=== PATIENT | female | born 1995 | race Caucasian/White ===

== ENCOUNTER 2017-12-07 01:05 | Day surgery (SDC) | payer OTHER ==
[2017-12-07] MEDS ORDERED: Ondansetron 4 MG/2 ML SDV IVPUSH ONE ×2 (01:44→04:56)
[2017-12-07] MEDS ORDERED: Sodium Chloride 0.9% 1,000 ML IV SCH (01:45)
[2017-12-07] MEDS ORDERED: HYDROmorphone 0.5 MG/0.5 ML SYRINGE IVPUSH STA (01:46)
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
[2017-12-07] MEDS ORDERED: Iopamidol 612 MG/ML 150 ML Bottle IVPUSH ONE (03:19)
[2017-12-07] MEDS ORDERED: Diatrizoate Meglumine/Diatrizoate Sodium 37% 120 ML Bottle PO ONE ×2 (03:19)
[2017-12-07] MEDS ORDERED: Ertapenem 1 GM in Sodium Chloride 0.9% 100 ML IV ONE (04:11)
[2017-12-07] MEDS ORDERED: HYDROmorphone 0.5 MG/0.5 ML SYRINGE IVPUSH ONE (04:37)
[2017-12-07] MEDS ORDERED: Lidocaine 1% 50 ML MDV ONE (07:05)
--- NOTE | 2017-12-07 07:10 | PCM.PREANE ---
Preanesthetic Assessment - Procedure Proposed Procedure: Lap APPY - Anesthesia/Transfusion/Family Hx Anesthesia History: Prior Anesthesia Without Reaction Family History of Anesthesia Reaction: No Transfusion History: No Prior Transfusion(s) - Review of Systems General: No Symptoms Pulmonary: Other (asthma- prn use of inhaler ) Cardiovascular: No Symptoms Gastrointestinal: No Symptoms Neurological: No Symptoms Other: Reports: Anxiety (not medicated ) - Physical Assessment NPO Status Date: 12/06/17 NPO Status Time: 14:00 O2 Sat by Pulse Oximetry: 100 Respiratory Rate: 18 Vital Signs: Last Vital Signs Temp 36.4 C 12/07/17 01:12 Pulse 68 12/07/17 01:12 Resp 18 12/07/17 01:12 BP 119/67 12/07/17 01:12 Pulse Ox 100 12/07/17 01:12 Height: 1.57 m Weight: 69.4 kg ASA Class: 2 Mental Status: Alert & Oriented x3 Airway Class: Mallampati = 1 Dentition: Reports: Normal Dentition Thyro-Mental Finger Breadths: 3 Mouth Opening Finger Breadths: 3 ROM/Head Extension: Full Lungs: Clear to Auscultation, Normal Respiratory Effort Cardiovascular: Regular Rate, Regular Rhythm - Lab Values: Laboratory Last Values WBC 11.43 K/mm3 (3.98-10.04) H 12/07/17 01:50 RBC 5.14 M/mm3 (3.98-5.22) 12/07/17 01:50 Hgb 14.6 gm/L (11.2-15.7) 12/07/17 01:50 Hct 43.3 % (34.1-44.9) 12/07/17 01:50 MCV 84.2 fl (79.4-94.8) 12/07/17 01:50 MCH 28.4 pg (25.6-32.2) 12/07/17 01:50 MCHC 33.7 g/dl (32.2-35.5) 12/07/17 01:50 RDW Std Deviation 41.7 fL (36.4-46.3) 12/07/17 01:50 Plt Count 219 K/mm3 (182-369) 12/07/17 01:50 MPV 10.7 fl (9.4-12.3) 12/07/17 01:50 Neutrophils % (Manual) 90 % (40-60) H 12/07/17 01:50 Band Neutrophils % 0 % (0-10) 12/07/17 01:50 Lymphocytes % (Manual) 4 % (20-40) L 12/07/17 01:50 Atypical Lymphs % 3 % 12/07/17 01:50 Monocytes % (Manual) 0 % (2-10) L 12/07/17 01:50 Eosinophils % (Manual) 2 % (0.7-5.8) 12/07/17 01:50 Basophils % (Manual) 1 (0.1-1.2) 12/07/17 01:50 Platelet Estimate Adequate 12/07/17 01:50 Plt Morphology Comment Normal 12/07/17 01:50 RBC Morph Comment Normal 12/07/17 01:50 Sodium 138 mEq/L (136-145) 12/07/17 01:50 Potassium 3.4 mEq/L (3.5-5.1) L 12/07/17 01:50 Chloride 104 mEq/L (98-107) 12/07/17 01:50 Carbon Dioxide 24 mEq/L (21-32) 12/07/17 01:50 Anion Gap 13.4 (5-15) 12/07/17 01:50 BUN 12 mg/dL (7-18) 12/07/17 01:50 Creatinine 1.1 mg/dL (0.55-1.02) H 12/07/17 01:50 Est Cr Clr Drug Dosing 64.52 mL/min 12/07/17 01:50 Estimated GFR (MDRD) > 60 mL/min (>60) 12/07/17 01:50 BUN/Creatinine Ratio 10.9 (14-18) L 12/07/17 01:50 Glucose 104 mg/dL (74-106) 12/07/17 01:50 Calcium 8.9 mg/dL (8.5-10.1) 12/07/17 01:50 Total Bilirubin 0.4 mg/dL (0.2-1.0) 12/07/17 01:50 AST 17 U/L (15-37) 12/07/17 01:50 ALT 27 U/L (14-59) 12/07/17 01:50 Alkaline Phosphatase 73 U/L (46-116) 12/07/17 01:50 Total Protein 8.1 g/dl (6.4-8.2) 12/07/17 01:50 Albumin 4.1 g/dl (3.4-5.0) 12/07/17 01:50 Globulin 4.0 gm/dL 12/07/17 01:50 Albumin/Globulin Ratio 1.0 (1-2) 12/07/17 01:50 Lipase 87 U/L (73-393) 12/07/17 01:50 Urine Color Yellow (Yellow) 12/07/17 02:04 Urine Appearance Clear (Clear) 12/07/17 02:04 Urine pH 5.5 (5.0-8.0) 12/07/17 02:04 Ur Specific [place] > or = 1.030 (1.005-1.030) 12/07/17 02:04 Urine Protein Negative (Negative) 12/07/17 02:04 Urine Glucose (UA) Negative (Negative) 12/07/17 02:04 Urine Ketones Negative (Negative) 12/07/17 02:04 Urine Occult Blood Negative (Negative) 12/07/17 02:04 Urine Nitrite Negative (Negative) 12/07/17 02:04 Urine Bilirubin Negative (Negative) 12/07/17 02:04 Urine Urobilinogen 0.2 (0.2-1.0) 12/07/17 02:04 Ur Leukocyte Esterase Negative (Negative) 12/07/17 02:04 Urine RBC 0-5 /hpf (0-5) 12/07/17 02:04 Urine WBC 0-5 /hpf (0-5) 12/07/17 02:04 Ur Epithelial Cells 0-5 /hpf (0-5) 12/07/17 02:04 Urine Bacteria Rare /hpf (FEW) 12/07/17 02:04 Urine Mucus Moderate /hpf (FEW) H 12/07/17 02:04 Urine HCG, Qual Negative (NEGATIVE) 12/07/17 02:04 - Allergies Allergies/Adverse Reactions: Allergies Allergy/AdvReac Type Severity Reaction Status Date / Time No Known Allergies Allergy Verified 12/07/17 01:14 - Blood Blood Available: No Product(s) Available: None - Anesthesia Plan Pre-Op Medication Ordered: None - Acknowledgements Anesthesia Type Planned: General Anesthesia Pt an Appropriate Candidate for the Planned Anesthesia: Yes Alternatives and Risks of Anesthesia Discussed w Pt/Guardian: Yes Pt/Guardian Understands and Agrees with Anesthesia Plan: Yes PreAnesthesia Questionnaire - Past Surgical History HEENT Surgical History: Reports: Oral Surgery ([place] teeth extraction) - SUBSTANCE USE Smoking Status *Q: Never Smoker Second Hand Smoke Exposure: No Recreational Drug Use History: Yes Recreational Drug Type: Reports: Marijuana/Hashish (last smoked September 2017) - HOME MEDS Home Medications: Home Meds . [No Known Home Meds] 12/07/17 [History] - CURRENT (IN HOUSE) MEDS Current Meds: Current Medications Sodium Chloride (Normal Saline) 1,000 mls @ 150 mls/hr IV ASDIRECTED NELY Last Admin: 12/07/17 01:55 Dose: 150 mls/hr Discontinued Medications Diatrizoate Meglum/Diatrizoate Sod (Gastrografin 37%) 120 ml PO ONETIME ONE Stop: 12/07/17 03:20 Last Admin: 12/07/17 03:21 Dose: 120 ml Diatrizoate Meglum/Diatrizoate Sod (Gastrografin 37%) 120 ml PO ONETIME ONE Stop: 12/07/17 03:20 Hydromorphone HCl (Dilaudid) 0.5 mg IVPUSH ONETIME STA Stop: 12/07/17 01:47 Last Admin: 12/07/17 01:58 Dose: 0.5 mg Hydromorphone HCl (Dilaudid) 0.5 mg IVPUSH ONETIME ONE Stop: 12/07/17 04:38 Last Admin: 12/07/17 04:42 Dose: 0.5 mg Ertapenem 1 gm/ Sodium (Chloride) 100 mls @ 200 mls/hr IV ONETIME ONE Stop: 12/07/17 04:40 Last Admin: 12/07/17 04:33 Dose: 200 mls/hr Iopamidol (Isovue-300 (61%)) 125 ml IVPUSH ONETIME ONE Stop: 12/07/17 03:20 Last Admin: 12/07/17 03:21 Dose: 150 ml Ondansetron HCl (Zofran) 4 mg IVPUSH ONETIME ONE Stop: 12/07/17 01:45 Last Admin: 12/07/17 01:55 Dose: 4 mg Ondansetron HCl (Zofran) 4 mg IVPUSH ONETIME ONE Stop: 12/07/17 04:57 Last Admin: 12/07/17 05:01 Dose: 4 mg
[2017-12-07] MEDS ORDERED: Propofol 200 MG/20 ML SDV ONE (07:18)
[2017-12-07] MEDS ORDERED: Ondansetron 4 MG/2 ML SDV ONE (07:18)
[2017-12-07] MEDS ORDERED: Succinylcholine/Normal Saline 100 MG/5 ML Syringe ONE (07:18)
[2017-12-07] MEDS ORDERED: Dexamethasone 4 MG/ML 5 ML MDV ONE (07:18)
[2017-12-07] MEDS ORDERED: Midazolam 1 MG/ML 2 ML SDV ONE (07:18)
[2017-12-07] MEDS ORDERED: fentaNYL 250 MCG/5 ML SDV ONE (07:18)
[2017-12-07] MEDS ORDERED: Rocuronium 50 MG/5 ML Vial ONE (07:18)
[2017-12-07] MEDS ORDERED: Lidocaine 1% 4 ML ONE (07:18)
[2017-12-07] MEDS ORDERED: Scopolamine 1.5 MG Transdermal Patch TRDERM ONE (07:30)
--- NOTE | 2017-12-07 07:39 | CT ---
CT abdomen and pelvis Technique: Multiple axial sections were obtained from above the dome of the diaphragm inferiorly through the pubic symphysis. Intravenous and oral contrast was utilized. Delayed images were obtained through the bladder. Comparison: No prior abdominal imaging. Findings: Appendix is dilated showing mild surrounding inflammatory change compatible with appendicitis. Visualized lung bases show nothing acute. Liver shows no focal parenchymal abnormality. Gallbladder contains no calcified gallstones. Spleen appears within normal limits. Adrenal glands contain no nodules. Pancreas is within normal limits. Kidneys show symmetric contrast enhancement without hydronephrosis or mass. Abdominal aorta shows no aneurysmal dilatation. No retroperitoneal adenopathy or mesenteric abnormalities are seen. No pelvic mass or adenopathy is seen. Minimal free fluid is seen within the pelvis which most likely is physiologic. Delayed images show contrast within the distal ureters and within the bladder. Bone window settings were reviewed and within normal limits for the patient's age. Impression: 1. Findings compatible with appendicitis. 2. Small amount of fluid within the pelvis most likely representing physiologic fluid. Diagnostic code #5 I agree with preliminary report issued by [facility] ([facility] report finalized on 12/07/17, 5:04 AM Central Time)
--- NOTE | 2017-12-07 07:43 | HP ---
DATE OF ADMISSION: 12/07/2017 CHIEF COMPLAINT: Right lower quadrant pain. HISTORY OF PRESENT ILLNESS: Gera Castillo is a very pleasant 22-year-old female who was last evening about 8 just did not feel well. She had got vague abdominal pain and some nausea. Over the course of the evening, it localized to the right lower quadrant. It is such that she did not like to do any movement at all. She has never had any of these problems before. She is not and is currently taking control. She has never had any associated vaginal discharge or bloody diarrhea or hematuria or dysuria. She was subsequently seen here and had a CT scan which is consistent with acute appendicitis. Currently, the patient states she feels slightly better, but still is very sore in the right lower quadrant. She remains anorexic and she also states that she is not hungry. PAST MEDICAL HISTORY: ALLERGIES: As a child, she could not take penicillin, but according to her mother, she feels she did take some of the other cillins. CURRENT MEDICATIONS: control as well as an inhaler. PAST SURGICAL HISTORY: Negative. SOCIAL HISTORY: Smoking negative. Alcohol socially. She is single. Her boyfriend is at her side. She has brothers and sisters who are alive and well. Her mother had undergone treatment for breast cancer. REVIEW OF SYSTEMS: No history of seizures, strokes, thyroid diabetes or hepatitis. She denies shortness of breath or cough. No history of palpitations. No history of abdominal ulcers or any prior abdominal pain. No change in her bowel habits. No hematuria, dysuria. She denies joint pain. She denies bleeding disorders and she denies ankle swelling or edema. OCCUPATION: Her occupation is a dancer. PHYSICAL EXAMINATION: GENERAL: She is now comfortable. HEENT: Pupils equal. NECK: Without mass. LUNGS: Clear. HEART: Rhythm is regular. ABDOMEN: Mildly tender to deep palpation in the right lower quadrant, slightly guarding. EXTREMITIES: Ankles are free of edema. IMAGING STUDIES: CT scan has been reviewed and clearly there is a markedly dilated very large acute appendix. IMPRESSION AND PLAN: 1. Indeed, she does have an acute appendicitis. We discussed the multiple options now that one has with treating acute appendicitis, nonoperatively versus operatively. Unfortunately, I think that due to the fact that the appendix is so markedly distended, that I would hesitate to treat this nonoperatively. I clearly gave her this option, but I would recommend an attempt of laparoscopic appendectomy. Risks of surgery include, but not limited to bleeding, infection, heart attack, , injury to structures, not intended the need for open procedure, the need for a drain. She understands if we do an open procedure, it will be midline. Even with these risks, she wishes to proceed and will go ahead at this time. 2. History of asthma. Thank you very much. Her mother was at her side and was in agreement. CHAN /[phone]
[2017-12-07] MEDS ORDERED: HYDROmorphone 0.5 MG/0.5 ML Syringe ONE ×2 (07:57)
[2017-12-07] MEDS ORDERED: Ketorolac 30 MG/ML SDV ONE (08:18)
[2017-12-07] MEDS ORDERED: Neostigmine Methylsulfate 1 MG/ML 5 ML Syringe ONE (08:18)
[2017-12-07] MEDS ORDERED: Meperidine PF 50 MG/ML Syringe IVPUSH PRN (08:45)
[2017-12-07] MEDS ORDERED: diphenhydrAMINE 50 MG/ML SDV IVPUSH PRN (08:45)
[2017-12-07] MEDS ORDERED: HYDROmorphone 0.5 MG/0.5 ML Syringe IVPUSH PRN (08:45)
[2017-12-07] MEDS ORDERED: fentaNYL 100 MCG/2 ML SDV IVPUSH PRN (08:45)
[2017-12-07] MEDS ORDERED: Ondansetron 4 MG/2 ML SDV IVPUSH PRN (08:45)
--- NOTE | 2017-12-07 08:45 | PCM.POSTAN ---
POST ANESTHESIA ASSESSMENT - MENTAL STATUS Mental Status: Alert, Oriented - VITAL SIGNS Pulse Rate: 64 SaO2: 98 Resp Rate: 13 Blood Pressure: 136/96 Temperature: 36.7 C - RESPIRATORY Respiratory Status: Respiratory Rate WNL, Airway Patent, O2 Saturation Stable, Supplemental Oxygen - CARDIOVASCULAR CV Status: Pulse Rate WNL, Blood Pressure Stable - GASTROINTESTINAL GI Status: No Symptoms - PAIN Pain Score: 0 - POST OP HYDRATION Hydration Status: Adequate & Stable
[2017-12-07] MEDS ORDERED: Acetaminophen 325 MG Tab PO SCH (09:17)
--- NOTE | 2017-12-08 12:14 | OR ---
DATE OF OPERATION: 12/07/2017 SURGEON: Odette Robledo MD PREOPERATIVE DIAGNOSIS: Acute appendicitis. POSTOPERATIVE DIAGNOSIS: Acute appendicitis. OPERATION PERFORMED: Laparoscopic appendectomy. ANESTHESIA: General with intubation. ESTIMATED BLOOD LOSS: Less than 10 mL. REPLACEMENT: Crystalloid. BRIEF HISTORY: This is a 22-year-old female, who arrived here with all the signs and symptoms of acute appendicitis, which was confirmed by CT scan. I had the opportunity to discuss the risks and benefits of surgery, and she agreed to proceed. Of note, we did discuss non-operative surgery, but because of the way that the looks on the CT scan, I do not think that this would be cullen. The patient was taken to the operating room. A time-out was performed. The patient's abdomen was prepped and draped in usual fashion. We waited for the 3 minutes for the prep to dry. I injected 1% lidocaine in the infraumbilical area and the suprapubic area. A transverse incision was made and I dissected down to the fascia. I lifted the fascia between 2 sterile hemostats and made a jaylon in the fascia. I advanced the Veress needle and CO2 was insufflated successfully. I then advanced a 5 mm port and confirmed that we had intraperitoneal positioning. I could see the inflamed appendix. A suprapubic 12 and a 5 mm in the right upper quadrant were placed under direct vision. At this point, I could easily see that the appendix was inflamed. The base, however, was nice and small. I was able to make a window at the base of the appendix and connected to the cecum and then fired the stapling device across this successfully. I then fired the stapling device, a portion of the mesoappendix to start dividing this, but there was a slight bleeder in one of them, and I had used multiple hemoclips. Therefore, I elected to take down the rest of the mesoappendix using hemoclips. At the completion of this, I was able to place this appendix in an Endobag and bring it out through the suprapubic incision. I then reassessed for hemostasis and irrigated. There were just a couple little oozing spots, which I was able to successfully place hemoclips to the point where there was complete and good hemostasis. I then irrigated and removed a little bit of blood that was in the intraperitoneal cavity and I removed the fluid that had dripped down into the pelvis. Again, hemostasis was good and I placed the bowel in its normal anatomical position. At this point in time, I removed the suprapubic under direct vision, no bleeding, and the 5 mm under direct vision and no bleeding was noted. The camera was removed. I reapproximated the fascia of the 12 and the infraumbilical 5 with a [id number] using 0 PDS. Subcuticular closure was utilized with 4-0. Benzoin and Steri-Strips were applied. The patient tolerated the procedure well, was now brought to recovery room. Instructions will be, she can shower tomorrow with the dressings off. She should come back and see me Wednesday for followup, sooner if there are any problems. We are anticipating getting her home here today as she lives in [facility]. CHAN /[id number]
== END 2017-12-07 10:45 | disposition home or self-care (01) ==
LOC: JD.ED 01:05 → JD.SDS 06:32
PROVIDERS: ATTEND Surgery
DX: K35.80 Unspecified acute appendicitis (principal); J45.909 Unspecified asthma, uncomplicated; F41.9 Anxiety disorder, unspecified; Z88.0 Allergy status to penicillin
CPT/HCPCS: 36415; 44970; 74177; 80053; 81001; 81025; 83690; 85007; 85027; 96361; 96365; 96375; 96376; 99285; A9270; J0330; J1100; J1170; J1335; J1885; J2250; J2405; J2704; J2710; J3010; J7030; J7040; Q9963; Q9967; J2001

== ENCOUNTER 2020-06-11 15:45 | Emergency (ER) | payer OTHER ==
--- NOTE | 2020-06-11 16:56 | CR ---
Chest: 2 views of the chest were obtained. Comparison: No prior chest imaging is available. Heart size and mediastinum are normal. Lungs are clear with no acute parenchymal change. Bony structures are unremarkable. Impression: 1. Nothing acute is seen on 2 view chest x-ray. Diagnostic code #1
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
== END 2020-06-11 17:16 | disposition home or self-care (01) ==
LOC: JD.ED 15:45
DX: S50.11XA Contusion of right forearm, initial encounter (principal); S20.211A Contusion of right front wall of thorax, initial encounter; V43.52XA Car driver injured in collision with other type car in traffic accident, initial encounter; Y92.410 Unspecified street and highway as the place of occurrence of the external cause
CPT/HCPCS: 71046; 71046-26; 99283; 99284-25

== ENCOUNTER 2021-02-22 15:59 | Emergency (ER) | payer OTHER ==
--- NOTE | 2021-02-22 17:11 | EDM.PDOC ---
ED HPI GENERAL MEDICAL PROBLEM - General Source of Information: Reports: Patient, Family, RN Notes Reviewed History Limitations: Reports: No Limitations - History of Present Illness Onset: Today, Sudden Duration: Heavy, Recurring Severity: Severe Improves with: Reports: None Worsens with: Reports: None Abdominal Pain Score (Numeric/FACES): 8 <Live Ladd - Last Filed: 02/22/21 19:34> <Kelsi Johnson V - Last Filed: 02/22/21 20:52> - General Chief Complaint: [facility] Problem Stated Complaint: MISCARRIAGE/POSS INFECTION Time Seen by Provider: 02/22/21 16:39 - History of Present Illness INITIAL COMMENTS - FREE TEXT/NARRATIVE: Patient is her first time and is going through a miscarriage she found out 5 days ago that she was miscarrying. She has had increasing vaginal bleeding today least 3-4 heavy bleeds today. Clots noted. She has increasing crampy pelvic pain that is described at 8-9 out of 10 pain. Not nauseated no vomiting or diarrhea no burning pain or blood in the urine no coughing cold symptoms chest pain or breathing problems lightheaded but no fainting spell. No history of any blood clot problems or bleeding disorder not on any coagulants. Sure of any vaginal or female complications or problems in the past such as PID or torsion, has had an ovarian cyst but never required problems. (Live Ladd) - Related Data Allergies Allergy/AdvReac Type Severity Reaction Status Date / Time No Known Allergies Allergy Verified 02/22/21 16:39 Home Meds: Home Meds HYDROmorphone [Dilaudid] 2 mg PO Q4H PRN #6 tab 02/22/21 [Rx] Past Medical History Respiratory History: Reports: Asthma STRAP [facility]ER History: Reports: Other (See Below) Other STRAP [facility]ER History: misscarriage Psychiatric History: Reports: Anxiety - Infectious Disease History Infectious Disease History: Reports: Novel Coronavirus - Past Surgical History HEENT Surgical History: Reports: Oral Surgery GI Surgical History: Reports: Appendectomy <Live Ladd - Last Filed: 02/22/21 19:34> Social & Family History - Family History Family Medical History: No Pertinent Family History - Tobacco Use Tobacco Use Status *Q: Never Tobacco User Second Hand Smoke Exposure: No - Caffeine Use Caffeine Use: Reports: None - Recreational Drug Use Recreational Drug Use: No - Living Situation & Occupation Living situation: Reports: Single, with Family Occupation: Student ([employer]) <Live Ladd - Last Filed: 02/22/21 19:34> ED ROS GENERAL - Review of Systems Review Of Systems: See Below Constitutional: Reports: No Symptoms. Denies: Fever, Chills HEENT: Denies: Vision Change Respiratory: Reports: No Symptoms. Denies: Shortness of Breath Cardiovascular: Denies: Chest Pain GI/Abdominal: Reports: Abdominal Pain, Nausea. Denies: Diarrhea, Vomiting : Reports: Other (Heavy vaginal bleeding with clots no tissue passed.). Denies: Dysuria, Flank Pain Musculoskeletal: Denies: Back Pain Skin: Denies: Pallor Neurological: Denies: Dizziness, Numbness, Syncope, Tingling Psychiatric: Reports: No Symptoms Hematologic/Lymphatic: Reports: No Symptoms <Live Ladd - Last Filed: 02/22/21 19:34> ED EXAM - Physical Exam Exam: See Below Exam Limited By: No Limitations General Appearance: Alert, WD/WN, No Apparent Distress Throat/Mouth: Normal Inspection Neck: Normal Inspection Respiratory/Chest: No Respiratory Distress Cardiovascular: Normal Peripheral Pulses GI/Abdominal Exam: Normal Bowel Sounds, Soft, No Distention, Tender, Other (Tender in the suprapubic pelvic region no masses palpated.) Extremities: Normal Inspection, No Pedal Edema Neurological: Alert, Oriented Psychiatric: Normal Affect, Normal Mood Skin Exam: Warm. No: Cool, Diaphoretic <Liev Ladd - Last Filed: 02/22/21 19:34> Course <Live Ladd - Last Filed: 02/22/21 19:34> <Kelsi Johnson V - Last Filed: 02/22/21 20:52> - Vital Signs Text/Narrative:: with miscarriage, vaginal bleeding that is heavier with lightheadedness, c rampy pelvic pain. Will order an ultrasound to rule out retained products of conception, screen for anemia type and screen in case of blood transfusion, IV fluid resuscitation, review old records (Live Ladd) Last Recorded V/S: Last Vital Signs Temp 97.0 F 02/22/21 16:38 Pulse 88 02/22/21 16:38 Resp 20 02/22/21 16:38 BP 121/81 02/22/21 16:38 Pulse Ox 100 02/22/21 16:38 - Orders/Labs/Meds Orders: Active Orders 24 hr Category Date Time Status Peripheral IV Care [RC] . DIRECTED Care 02/22/21 17:13 Active UA RFX BOB AND CULT IF INDIC [URIN] Stat Lab 02/22/21 17:12 Ordered Sodium Chloride 0.9% [Saline Flush] Med 02/22/21 17:12 Active 10 ml FLUSH ASDIRECTED PRN Peripheral IV Insertion Adult [OM.PC] Stat Oth 02/22/21 17:11 Ordered Medication Orders Sodium Chloride (Sodium Chloride 0.9% 10 Ml Syringe) 10 ml FLUSH ASDIRECTED PRN PRN Reason: Keep Vein Open Last Admin: 02/22/21 17:27 Dose: 10 ml Documented by: SUSIE Labs: Laboratory Tests 02/22/21 02/22/21 02/22/21 Range/Units 16:50 16:50 19:34 WBC 9.15 (3.98-10.04) K/mm3 RBC 4.57 (3.98-5.22) M/mm3 Hgb 13.1 (11.2-15.7) gm/dl Hct 39.6 (34.1-44.9) % MCV 86.7 (79.4-94.8) fl MCH 28.7 (25.6-32.2) pg MCHC 33.1 (32.2-35.5) g/dl RDW Std Deviation 39.8 (36.4-46.3) fL Plt Count 303 (182-369) K/mm3 MPV 10.5 (9.4-12.3) fl Neut % (Auto) 75.9 H (34.0-71.1) % Lymph % (Auto) 17.9 L (19.3-51.7) % [place] % (Auto) 4.6 L (4.7-12.5) % Eos % (Auto) 1.0 (0.7-5.8) Baso % (Auto) 0.4 (0.1-1.2) % Neut # (Auto) 6.94 H (1.56-6.13) K/mm3 Lymph # (Auto) 1.64 (1.18-3.74) K/mm3 [place] # (Auto) 0.42 H (0.24-0.36) K/mm3 Eos # (Auto) 0.09 (0.04-0.36) K/mm3 Baso # (Auto) 0.04 (0.01-0.08) K/mm3 Sodium 139 (136-145) mEq/L Potassium 3.9 (3.5-5.1) mEq/L Chloride 104 (98-107) mEq/L Carbon Dioxide 24 (21-32) mEq/L Anion Gap 14.9 (5-15) BUN 15 (7-18) mg/dL Creatinine 1.1 H (0.55-1.02) mg/dL Est Cr Clr Drug Dosing 60.02 mL/min Estimated GFR (MDRD) > 60 (>60) mL/min BUN/Creatinine Ratio 13.6 L (14-18) Glucose 107 H (70-99) mg/dL Calcium 8.7 (8.5-10.1) mg/dL HCG, Quant 523.0 mIU/mL SARS-CoV-2 RNA (CIPRIANO) Negative (NEGATIVE) Meds: Medications Generic Name Dose Route Start Last Admin Trade Name Freq PRN Reason Stop Dose Admin Sodium Chloride 10 ml 02/22/21 17:12 02/22/21 17:27 Sodium Chloride 0.9% 10 Ml Syringe FLUSH 10 ml ASDIRECTED PRN Administration Keep Vein Open Discontinued Medications Generic Name Dose Route Start Last Admin Trade Name Freq PRN Reason Stop Dose Admin Hydromorphone HCl 1 mg 02/22/21 17:19 02/22/21 17:27 Hydromorphone 1 Mg/Ml Syringe IVPUSH 02/22/21 17:20 1 mg ONETIME ONE Administration Hydromorphone HCl 0.5 mg 02/22/21 18:40 02/22/21 18:44 Hydromorphone 0.5 Mg/0.5 Ml Syringe IVPUSH 02/22/21 18:41 0.5 mg ONETIME ONE Administration Hydromorphone HCl 4 mg 02/22/21 20:42 Hydromorphone 2 Mg Tab PO 02/22/21 20:43 ONETIME ONE Sodium Chloride 1,000 mls @ 999 mls/hr 02/22/21 17:13 02/22/21 17:27 Normal Saline IV 02/22/21 18:13 999 mls/hr ONETIME ONE Administration Misoprostol 800 mcg 02/22/21 20:35 Misoprostol 25 Mcg (1/4 Of 100 Mcg) Tab VAG 02/22/21 20:36 ONETIME ONE Misoprostol 800 mcg 02/22/21 20:42 Misoprostol 200 Mcg Tab PO 02/22/21 20:43 ONETIME ONE Ondansetron HCl 4 mg 02/22/21 17:20 02/22/21 17:27 Ondansetron 4 Mg/2 Ml Sdv IVPUSH 02/22/21 17:21 4 mg ONETIME ONE Administration - Re-Assessments/Exams Free Text/Narrative Re-Assessment/Exam: 02/22/21 19:04 White counts 9100 hemoglobin 13.1 hematocrit 39.6 platelet count 303 sodium 139 potassium 3.9 chloride 104 CO2 is 24 BUN is 15 creatinine 1.1 GFR is normal hCG is 523 (Live Ladd) Free Text/Narrative Re-Assessment/Exam: 02/22/21 19:04 Awaiting the vaginal ultrasound results. Will get in touch with [facility] to discuss disposition plans. 02/22/21 19:[address] Blackwood on-call for [facility] who recommends a consideration whether patient would tolerate Cytotec 100 mcg take 4 tablets intravaginally x1 and repeat in 6 hours until she passes products of conception, strict return precautions otherwise be given and otherwise she will definitely need D&C. We will make sure we understand her blood type however. (Live Ladd) 02/22/21 20:46 Patient's case was discussed with Dr. Ladd, as he was busy attending a STEMI. I will write for discharge instructions and get her discharged home. He does want the patient sent home with some oral Dilaudid, and he requested a 4 mg oral Dilaudid dose to be given to the patient before she leaves. (Kelsi Johnson V) Departure <Live Ladd - Last Filed: 02/22/21 19:34> - Departure Time of Disposition: 20:50 Condition: Good - Discharge Information *PRESCRIPTION DRUG MONITORING PROGRAM REVIEWED*: Yes *COPY OF PRESCRIPTION DRUG MONITORING REPORT IN PATIENT JARAD: No <[place],Kelsi V - Last Filed: 02/22/21 20:52> - Departure Disposition: Home, Self-Care 01 Clinical Impression: Retained products of conception after miscarriage - Discharge Information Prescriptions: miSOPROStoL [Cytotec] 200 mcg VAG ONETIME #4 tablet HYDROmorphone [Dilaudid] 2 mg PO Q4H PRN #6 tab PRN Reason: Pain Instructions: Incomplete Miscarriage Referrals: Amber Huffman MD [Primary Care Provider] - Forms: ED Department Discharge Additional Instructions: You were evaluated in the ER today regarding your abdominal discomfort. Your ultrasound demonstrated retained products of conception. You were given a dose of Cytotec, to help pass the retained products of conception, your first dose was given in the ER, you will need to repeat the second dose in 6 hours. That would be at roughly 3 AM in the morning. You will need to insert both tablets in your vagina at that time. You will have some abdominal cramping at that time. You were given a prescription for a strong pain medication, Dilaudid, please take 1/2-1 tab every 4 hours as needed for pain. These medications can be addictive, so please take as few as possible to achieve adequate pain control. These meds can also be quite constipating, recommend that you increase your oral fluid intake and take a stool softener like MiraLAX while taking these medications. Do not drive while taking this medication. If you are bleeding through more than 1-2 maxi pads every couple hours, this would be cause for concern to return to the ER for immediate management. If you should have any sort of foul-smelling discharge, do not hesitate to return to the ER for more urgent management. Otherwise you should please follow up with your [facility] on Wednesday as early as you possibly can. Call her office to schedule an appointment, as you may necessitate a D&C, this is a surgical procedure. Please return to the ED at any time if your symptoms change or worsen. Sepsis Event Note (ED) - Focused Exam Vital Signs: Vital Signs Temp Pulse Resp BP Pulse Ox 02/22/21 16:38 97.0 F 88 20 121/81 100
[2021-02-22] MEDS ORDERED: Sodium Chloride 0.9% 10 ML Syringe FLUSH PRN (17:12)
[2021-02-22] MEDS ORDERED: Sodium Chloride 0.9% 1,000 ML IV ONE (17:13)
[2021-02-22] MEDS ORDERED: HYDROmorphone 1 MG/ML Syringe IVPUSH ONE (17:19)
[2021-02-22] MEDS ORDERED: Ondansetron 4 MG/2 ML SDV IVPUSH ONE (17:20)
[2021-02-22] MEDS ORDERED: HYDROmorphone 0.5 MG/0.5 ML Syringe IVPUSH ONE (18:40)
--- NOTE | 2021-02-22 19:14 | US ---
Obstetrical ultrasound: Multiple real-time images were obtained transvaginally. Comparison: No previous study available for this . Findings: No intrauterine gestational sac is seen. Endometrium is thickened and is heterogeneous which shows increased vascularity presumably due to retained products of conception. Endometrial thickness has an AP dimension 1.5 cm with transverse dimension of 2.0 cm. Ovaries appear within normal limits. No adnexal abnormalities are seen. No free fluid is seen. Impression: 1. Heterogeneously thickened endometrium showing increased vascularity presumably due to retained products of conception. Measurements as noted above. 2. No intrauterine gestational sac or adnexal abnormality is seen. No additional abnormality is appreciated. Diagnostic code #3
[2021-02-22] MEDS ORDERED: Misoprostol 25 MCG (1/4 of 100 MCG) Tab VAG ONE (20:35)
[2021-02-22] MEDS ORDERED: HYDROmorphone 2 MG Tab PO ONE (20:42)
[2021-02-22] MEDS ORDERED: Misoprostol 200 MCG Tab PO ONE (20:42)
== END 2021-02-22 21:15 | disposition home or self-care (01) ==
LOC: JD.ED 15:59
DX: O02.1 Missed abortion (principal); J45.909 Unspecified asthma, uncomplicated; Z20.822 Contact with and (suspected) exposure to COVID-19
CPT/HCPCS: 36415; 76817; 80048; 84702; 85025; 87635; 96374; 96375; 96376; 99284; A9270; J1170; J2405; J7030; U0002

== ENCOUNTER 2022-04-13 09:50 | Inpatient (IN) | payer BC ==
[2022-04-13] MEDS ORDERED: Nalbuphine HCl 10 MG/ 1ML Amp IVPUSH PRN (10:48)
[2022-04-13] MEDS ORDERED: Sodium Chloride 0.9% 10 ML Syringe FLUSH PRN (10:48)
[2022-04-13] MEDS ORDERED: Ondansetron 4 MG/2 ML SDV IVPUSH PRN (10:48)
[2022-04-13] MEDS: Lactated Ringers 1,000 ML IV SCH ×4 (12:09→23:50)
[2022-04-13] MEDS: Oxytocin/Lactated Ringers 10 UNIT/1,000 ML BAG IV SCH (12:10)
[2022-04-13] MEDS ORDERED: diphenhydrAMINE 50 MG/ML SDV IVPUSH PRN (14:48)
[2022-04-13] MEDS ORDERED: fentaNYL 100 MCG/2 ML SDV EPIDUR PRN (14:48)
[2022-04-13] MEDS ORDERED: ePHEDrine 50 MG/ML SDV IVPUSH PRN (14:48)
[2022-04-13] MEDS: Bupivacaine/fentaNYL/NS 100 ML Bag EPIDUR PRN (18:17)
[2022-04-13] MEDS: Sodium Chloride 0.9% 10 ML Syringe FLUSH SCH (22:27)
[2022-04-14] MEDS ORDERED: Lidocaine 1% 10 ML MDV ONE
[2022-04-14] MEDS: Bupivacaine/fentaNYL/NS 100 ML Bag EPIDUR PRN (03:08)
[2022-04-14] MEDS: Oxytocin/Lactated Ringers 10 UNIT/1,000 ML BAG IV SCH (03:11)
[2022-04-14] MEDS: Sodium Chloride 0.9% 10 ML Syringe FLUSH SCH (11:22)
[2022-04-14] MEDS ORDERED: Acetaminophen 325 MG Tab PO PRN (11:59)
[2022-04-14] MEDS ORDERED: Docusate Sodium 100 MG Cap PO PRN (11:59)
[2022-04-14] MEDS ORDERED: Benzocaine/Menthol 20%-0.5% Spray 78 GM Cannister TOP PRN (11:59)
[2022-04-14] MEDS ORDERED: Witch Hazel Medicated Pads 40/Jar TOP PRN (11:59)
[2022-04-14] MEDS: Ibuprofen 600 MG Tab PO PRN ×2 (12:07→21:14)
[2022-04-15] MEDS: Ibuprofen 600 MG Tab PO PRN ×4 (04:09→21:31)
[2022-04-15] MEDS: Prenatal Multivitamin with Calcium/Folic Acid/Iron Tab PO SCH (08:47)
[2022-04-16] MEDS: Prenatal Multivitamin with Calcium/Folic Acid/Iron Tab PO SCH (10:13)
[2022-04-16] MEDS: Ibuprofen 600 MG Tab PO PRN (10:14)
== END 2022-04-16 10:30 | disposition home or self-care (01) | DRG 560 ==
LOC: JD.OB 09:50 → OBSVTOIN 04-14 09:50 → JD.OB 04-14 11:48
PROVIDERS: ADMIT Obstetrics & Gynecology; ATTEND Obstetrics & Gynecology
PROC: 10E0XZZ Delivery of Products of Conception, External Approach (ICD-10-PCS; principal; 2022-04-14)
PROC: 10907ZC Drainage of Amniotic Fluid, Therapeutic from Products of Conception, Via Natural or Artificial Opening (ICD-10-PCS; 2022-04-14)
PROC: 3E033VJ Introduction of Other Hormone into Peripheral Vein, Percutaneous Approach (ICD-10-PCS; 2022-04-14)
PROC: 0KQM0ZZ Repair Perineum Muscle, Open Approach (ICD-10-PCS; 2022-04-14)
PROC: 3E0R3BZ Introduction of Anesthetic Agent into Spinal Canal, Percutaneous Approach (ICD-10-PCS; 2022-04-14)
PROC: 00HU33Z Insertion of Infusion Device into Spinal Canal, Percutaneous Approach (ICD-10-PCS; 2022-04-14)
DX: O48.0 Post-term pregnancy (principal); Z37.0 Single live birth; Z3A.40 40 weeks gestation of pregnancy; O70.1 Second degree perineal laceration during delivery; Z86.16 Personal history of COVID-19; Z90.49 Acquired absence of other specified parts of digestive tract; O99.344 Other mental disorders complicating childbirth; F41.0 Panic disorder [episodic paroxysmal anxiety]
CPT/HCPCS: 36415; 51702; 59025; 59409; 85025; 86592; A9270-GY; J2405; J2590; J3010; J7120